=== PATIENT | male | born 1985 | race Hispanic/Latino ===

== ENCOUNTER 2019-08-08 23:11 | Emergency (ER) | payer OTHER, SELFPAY | END 2019-08-09 00:49 | disposition home or self-care (01) | LOC: EDH 23:11 | DX: J12.89 Other viral pneumonia (principal); J06.9 Acute upper respiratory infection, unspecified; Z20.828 Contact with and (suspected) exposure to other viral communicable diseases; Z90.49 Acquired absence of other specified parts of digestive tract | CPT/HCPCS: 36415; 71045; 87804 ×2; 99284; U0003 ==

== ENCOUNTER 2021-02-13 00:10 | Emergency (ER) | payer OTHER, SELFPAY ==
[~2021-02-13] VITALS: Ht 175.3 cm; Wt 104.3 kg
[2021-02-13] MEDS ORDERED: 0.9%NACL 1000ML 1,000 ML IV ONE ×2 (00:30→02:00)
[2021-02-13] MEDS ORDERED: KETOROLAC 30MG VIAL (30MG/ML) IV ONE (00:30)
[2021-02-13] MEDS ORDERED: ACETAMINOPHEN 500 MG TABLET PO ONE (00:30)
[2021-02-13] MEDS ORDERED: ACETAMINOPHEN 500 MG TABLET ONE (00:38)
[2021-02-13 00:56] LABS: CREATININE 0.9 mg/dL (0.5-1.5); POTASSIUM 3.7 mmol/L (3.5-5.1)
[2021-02-13 01:01] LABS: ALBUMIN 3.7 g/dL (3.5-5.0); TOTAL PROTEIN, SERUM 8.2 g/dL (6.0-8.3)
[2021-02-13 01:04] LABS: BASOPHILS % (AUTO) 0.5 % (0.0-5.0); EOSINOPHILS % (AUTO) 1.3 % (0.0-8.0); LYMPHOCYTES % (AUTO) 8.3 % (21.0-51.0); MEAN CORPUSCULAR HEMOGLOBIN 29.8 pg (27.0-33.0); MEAN CORPUSCULAR HGB CONC 33.1 g/dL (32.0-36.0); MEAN CORPUSCULAR VOLUME 90.2 fL (79-99); MONOCYTES % (AUTO) 6.3 % (3.0-13.0); NEUTROPHILS % (AUTO) 82.3 % (40.0-77.0); PLATELET COUNT (AUTO) 292 K/uL (130-400); RED CELL DISTRIBUTION WIDTH 13.2 % (11.0-15.5); WHITE BLOOD COUNT (AUTO) 11.4 K/uL (4.8-10.8)
[2021-02-13 01:06] LABS: B-TYPE NATRIURETIC PEPTIDE < 5 pg/mL (0-100)
[2021-02-13 01:21] LABS: APPEARANCE,URINE Clear (CLEAR); BILIRUBIN,URINE Negative (NEGATIVE); COLOR,URINE Yellow (YELLOW); GLUCOSE, URINE (UA) Negative (NEGATIVE); KETONES,URINE Trace mg/dL (NEGATIVE); LEUKOCYTE ESTERASE ,URINE Negative (NEGATIVE); NITRATE,URINE Negative (NEGATIVE); OCCULT BLOOD,URINE Negative (NEGATIVE); PROTEIN,URINE Negative (NEGATIVE)
[2021-02-13] MEDS ORDERED: 0.9%NACL 1000ML 1,000 ML IV SCH ×2 (01:55→02:00)
[2021-02-13] MEDS ORDERED: IOHEXOL-350 75 ML VIAL IV ONE (02:59)
[2021-02-13 04:10] VITALS: BP 126/84
[2021-02-13] MEDS ORDERED: ONDANSETRON 4MG INJ IVP ONE (05:30)
[2021-02-13] MEDS ORDERED: CEFTRIAXONE 1G VIAL IVP ONE (05:30)
[2021-02-13] MEDS ORDERED: MORPHINE 4 MG SYG IV ONE (05:30)
[2021-02-13] MEDS ORDERED: DOXYCYCLINE HYCLATE 100 MG TABLET PO SCH (05:30)
[2021-02-13] MEDS ORDERED: IBUP-2070 PO (05:45)
[2021-02-13] MEDS ORDERED: DOXY-336 PO (05:45)
[2021-02-13] MEDS ORDERED: ACET1TAB25 PO (05:45)
== END 2021-02-13 06:07 | disposition home or self-care (01) ==
LOC: EDH 00:10
DX: J18.9 Pneumonia, unspecified organism (principal); R00.0 Tachycardia, unspecified; Z20.822 Contact with and (suspected) exposure to COVID-19; Z79.1 Long term (current) use of non-steroidal anti-inflammatories (NSAID); Z79.899 Other long term (current) drug therapy; Z90.49 Acquired absence of other specified parts of digestive tract
CPT/HCPCS: 36415; 71045; 71275; 80053; 81003; 83605; 83880; 84145; 84484; 85025; 85378; 87040 ×2; 87635; 87804 ×2; 93005; 96361; 96374; 96375; 99285; C9803; J0696; J1885; J2270; J2405; J7030; Q9967